=== PATIENT | male | born 1980 | race Two or more races ===

== ENCOUNTER 2024-12-17 22:25 | Emergency (ER) | payer BC ==
[~2024-12-17] VITALS: Ht 182.9 cm; Wt 99.8 kg
[2024-12-17] MEDS ORDERED: ONDANSETRON 4 MG/2 ML VIAL ONE (22:50)
[2024-12-17 22:52] LABS: BASOPHILS # (AUTO) 0.1 K/UL (0.0-0.2); BASOPHILS % (AUTO) 1.2 % (0.0-2.0); EOSINOPHILS # (AUTO) 0.1 K/uL (0.0-0.7); EOSINOPHILS % (AUTO) 1.1 % (0.0-7.0); HEMATOCRIT 45.7 % (36.7-47.1); HEMOGLOBIN 16.1 g/dL (12.5-16.3); LYMPHOCYTES # (AUTO) 4.5 K/uL (0.8-4.8); LYMPHOCYTES % (AUTO) 40.6 % (20.5-51.5); MEAN CORPUSCULAR HGB CONC 35 g/dL (32.5-36.3); MEAN CORPUSCULAR VOLUME 87.9 fL (73.0-96.2); MONOCYTES # (AUTO) 0.7 K/uL (0.1-1.30); MONOCYTES % (AUTO) 6.5 % (0.0-11.0); NEUTROPHILS # (AUTO) 5.6 K/uL (1.8-8.9); NEUTROPHILS % (AUTO) 50.6 % (38.5-71.5); PLATELET COUNT (AUTO) 294 K/uL (152-348); RED CELL DISTRIBUTION WIDTH 12.8 % (12.1-16.2)
[2024-12-17] MEDS: ONDANSETRON 4 MG/2 ML VIAL IV ONE (22:54)
[2024-12-17] MEDS: IV NORMAL SALINE 1000 ML BAG IV ONE (22:54)
[2024-12-17 23:02] LABS: DIFFERENTIAL COMMENT 1
[2024-12-17 23:16] LABS: CALCIUM 9.5 mg/dL (8.5-10.1); CARBON DIOXIDE 27 mmol/L (21-32); CHLORIDE 104 mmol/L (98-107); CREATININE 1.1 mg/dL (0.6-1.3); GLUCOSE 123 mg/dL (74-106); POTASSIUM 3.1 mmol/L (3.5-5.1); SODIUM SERUM 142 mmol/L (136-145); UREA NITROGEN, BLOOD 18 mg/dL (7-18)
[2024-12-17 23:28] LABS: ALANINE AMINOTRANSFERASE 24 U/L (16-63); ALBUMIN 4.1 g/dL (3.4-5.0); ALKALINE PHOSPHATASE 81 U/L (50-136); ASPARTATE AMINOTRANSFERASE 16 U/L (15-37); BILIRUBIN,TOTAL 0.4 mg/dL (0.2-1.0); TOTAL PROTEIN, SERUM 7.5 g/dL (6.4-8.2)
[2024-12-18] MEDS ORDERED: POTASSIUM CHLORIDE 20 MEQ TAB.PRT.SR ONE ×2 (00:07→00:09)
[2024-12-18] MEDS: POTASSIUM CHLORIDE 20 MEQ TAB.PRT.SR PO ONE (00:13)
[2024-12-18 00:31] VITALS: BP 118/80; O2SAT 93
[2024-12-18 00:58] LABS: BILIRUBIN,DIRECT 0.1 mg/dL (0.0-0.2)
== END 2024-12-18 00:33 | disposition home or self-care (01) ==
LOC: ER 22:29
DX: R55 Syncope and collapse (principal); R42 Dizziness and giddiness; R11.0 Nausea; R94.31 Abnormal electrocardiogram [ECG] [EKG]; F17.210 Nicotine dependence, cigarettes, uncomplicated
CPT/HCPCS: 99285; 96374; 71045; 96361; 99406; 80076; 80048; 85025; 85379; 84484; 36415; 93005; J2405; J7040; A4606; A4663